=== PATIENT | male | born 1965 | race Caucasian/White ===

== ENCOUNTER 2022-11-17 15:28 | Inpatient (IN) | payer OTHER, SELFPAY ==
[~2022-11-17 15:28] MED LIST: Iopamidol-370 76% 500 ML 1 ML ONE
[2022-11-17 16:05] LABS: #Eosinphils 0.3 thou/uL (0.0-0.7); #Lymphocytes 1.7 thou/uL (1.20-3.40); #Monocytes 0.5 thou/uL (0.11-0.59); #Neutrophils 6.1 thou/uL (1.40-6.50); %Basophils 0.3 % (0.0-1.0); %Eosinophils 2.9 % (0.0-10.0); %Lymphocytes 19.6 % (21.0-51.0); %Monocytes 6.4 % (0.0-10.0); %Neutrophils 70.8 % (42.0-75.0); Hemoglobin 16.7 g/dL (14.0-18.0); Mean Corpuscular HGB CONC 35.7 g/dL (32.0-36.0); Mean Corpuscular Hemoglobin 30.8 pg (27.0-31.0); Mean Corpuscular Volume 86.3 fl (78.0-98.0); Platelet Count 230 10x3/uL (130-400); RBC Distribution Width 13.1 % (11.5-14.5); Red Blood Cell (RBC) Count 5.43 mill/uL (4.70-6.10); White Blood Cell (WBC) Count 8.5 10x3/uL (4.8-10.8)
[2022-11-17 16:20] LABS: INR-International Normal Ratio 1.1; PTT 30.1 sec (22.9-36.1); Prothrombin Time 14.4 sec (12.0-14.7)
[2022-11-17 16:29] LABS: ALT (SGPT) 34 U/L (8-55); AST (SGOT) 30 U/L (5-34); Albumin 4.2 g/dL (3.5-5.0); Alkaline Phosphatase 99 U/L (40-110); Anion Gap 20 mmol/L (10-20); BUN (Urea Nitrogen) 19 mg/dL (8.4-25.7); Bilirubin, Total 0.5 mg/dL (0.2-1.2); CK (CPK) 124 U/L (30-200); Calc. Creatinine Clearance 0 mL/min (70-130); Calcium 9.1 mg/dL (7.8-10.44); Carbon Dioxide 19 mmol/L (22-29); Chloride 104 mmol/L (98-107); Estimated GFR 56; Globulin 3.3 g/dL (2.4-3.5); Glucose 258 mg/dL (70-105); Lipase 81 U/L (8-78); Potassium 3.6 mmol/L (3.5-5.1); Protein, Total 7.5 g/dL (6.0-8.3); Sodium 139 mmol/L (136-145)
[2022-11-17] MEDS ORDERED: Aspirin Chewable 81 MG TAB ONE (16:29)
[2022-11-17 16:47] LABS: Bacteria/HPF None Seen HPF (None Seen); Bilirubin Negative (Negative); Blood, Urine Negative (Negative); Clarity Clear (Clear); Glucose, Urine (Dipstick) 70 mg/dL (Negative); Ketone, Urine Negative (Negative); Leukocyte Negative Leu/uL (Negative); Nitrite Negative (Negative); Protein, Urine (Dipstick) 200 mg/dL (Neg-Trace); RBC/HPF 0-3 HPF (0-3); Specific Gravity, Urine 1.036 (1.002-1.036); Squamous Epithelial None Seen HPF (0-3); Urobilinogen Normal mg/dL (Less than 2); pH, Urine 5.5 (5.0-9.0)
[2022-11-17] MEDS ORDERED: Dextrose 5% in Water 1,000 ML IV PRN (17:48)
[2022-11-17] MEDS ORDERED: Dextrose 50% Abboject 50 ML SYRINGE SLOW IVP PRN (17:48)
[2022-11-17 19:34] LABS: Hemoglobin A1c 6.7 % (4.0-6.0)
[2022-11-17] MEDS: hydrALAZINE 20 MG/ML VIAL SLOW IVP PRN (20:57)
[2022-11-17] MEDS: Atorvastatin Calcium 40 MG TAB PO SCH (20:57)
[2022-11-17 21:06] LABS: Troponin I 0.038 ng/mL (< 0.028)
[2022-11-17 21:16] LABS: Troponin I 0.047 ng/mL (< 0.028)
[2022-11-17 23:52] VITALS: BMI 44.1
[2022-11-18] MEDS: hydrALAZINE 20 MG/ML VIAL SLOW IVP PRN (00:36)
[2022-11-18 01:50] LABS: Amphetamine Not Detected (NotDetected); Barbiturates Screen Not Detected (NotDetected); Benzodiazepine Screen Not Detected (NotDetected); Cocaine Metabolite Screen Not Detected (NotDetected); Methadone Not Detected (NotDetected); Methamphetamine Not Detected (NotDetected); Opiate Screen Detected (NotDetected); Oxycodone Screen Not Detected (NotDetected); Phencyclidine (PCP) Not Detected (NotDetected); THC/Cannabinoid Screen Not Detected (NotDetected); Tricyclic Screen Not Detected (NotDetected)
[2022-11-18] MEDS: Labetalol HCl 100 MG/20 ML VIAL SLOW IVP PRN ×6 (05:27→20:52)
[2022-11-18 06:01] LABS: #Basophils 0.1 thou/uL (0.0-0.2); #Eosinphils 0.1 thou/uL (0.0-0.7); #Lymphocytes 1.8 thou/uL (1.20-3.40); #Monocytes 0.8 thou/uL (0.11-0.59); #Neutrophils 7.9 thou/uL (1.40-6.50); %Basophils 0.5 % (0.0-1.0); %Eosinophils 1.4 % (0.0-10.0); %Lymphocytes 16.9 % (21.0-51.0); %Monocytes 7.4 % (0.0-10.0); %Neutrophils 73.8 % (42.0-75.0); Hemoglobin 16.2 g/dL (14.0-18.0); Mean Corpuscular HGB CONC 33.6 g/dL (32.0-36.0); Mean Corpuscular Volume 86.5 fl (78.0-98.0); Mean Platelet Volume 7.8 fL (7.4-10.4); Platelet Count 247 10x3/uL (130-400); RBC Distribution Width 13.2 % (11.5-14.5); Red Blood Cell (RBC) Count 5.57 mill/uL (4.70-6.10); White Blood Cell (WBC) Count 10.7 10x3/uL (4.8-10.8)
[2022-11-18 06:26] LABS: Anion Gap 14 mmol/L (10-20); BUN (Urea Nitrogen) 14 mg/dL (8.4-25.7); Calc. Creatinine Clearance 184 mL/min (70-130); Calcium 9.4 mg/dL (7.8-10.44); Carbon Dioxide 24 mmol/L (22-29); Cardiac Risk 5.7 (Less than 4.5); Chloride 105 mmol/L (98-107); Cholesterol 223 mg/dl (< 200 Desired); Estimated GFR 85; Glucose 186 mg/dL (70-105); HDL Cholesterol 39 mg/dL (>60 Neg Risk); LDL Cholesterol, Calculated 162 mg/dL; Potassium 3.3 mmol/L (3.5-5.1); Sodium 140 mmol/L (136-145); Triglycerides 112 mg/dL (Less than 150)
[2022-11-18] MEDS ORDERED: Electrolyte Replacement Protocol 1 EACH FS SCH (08:15)
[2022-11-18] MEDS: Aspirin 81 mg Enteric Coated Tablet PO SCH (08:53)
[2022-11-18 09:33] LABS: Magnesium 1.7 mg/dL (1.6-2.6)
[2022-11-18] MEDS ORDERED: Potassium Chloride 20 MEQ TAB PO SCH (09:45)
[2022-11-18] MEDS ORDERED: Magnesium 2 GM/50 ML(in water) 2 GM in Premix Bag 1 BAG IVPB SCH (10:00)
[2022-11-18] MEDS: HumaLOG 300 UNITS/3 ML VIAL SC PRN (11:29)
[2022-11-18] MEDS ORDERED: NIFEdipine XL 30 MG TAB PO SCH ×2 (12:00→17:45)
[2022-11-18] MEDS ORDERED: Polyethylene Glycol 3350 17 GM Packet PO PRN (19:33)
[2022-11-18] MEDS: Folic Acid 1 MG TAB PO SCH (20:52)
[2022-11-18] MEDS: Senokot S 8.6-50 MG TAB PO SCH (20:52)
[2022-11-18] MEDS: Multivit, Therapeutic 1 TAB PO SCH (20:52)
[2022-11-18] MEDS: Cyanocobalamin (Vitamin B-12) 1,000 MCG TAB PO SCH (20:52)
[2022-11-18] MEDS: Atorvastatin Calcium 40 MG TAB PO SCH (20:52)
[2022-11-19] MEDS: HumaLOG 300 UNITS/3 ML VIAL SC PRN ×2 (06:01→23:01)
[2022-11-19 06:48] LABS: Anion Gap 14 mmol/L (10-20); BUN (Urea Nitrogen) 15 mg/dL (8.4-25.7); Calc. Creatinine Clearance 189 mL/min (70-130); Calcium 9.1 mg/dL (7.8-10.44); Carbon Dioxide 24 mmol/L (22-29); Chloride 104 mmol/L (98-107); Estimated GFR 88; Glucose 145 mg/dL (70-105); Potassium 3.3 mmol/L (3.5-5.1); Sodium 139 mmol/L (136-145)
[2022-11-19] MEDS ORDERED: Potassium Chloride 20 MEQ TAB PO SCH (07:30)
[2022-11-19] MEDS ORDERED: Electrolyte Replacement Protocol FS PRN (07:30)
[2022-11-19] MEDS ORDERED: Carvedilol 6.25 MG TAB PO SCH ×3 (08:15→21:00)
[2022-11-19] MEDS ORDERED: NIFEdipine XL 30 MG TAB PO SCH ×2 (09:00→17:45)
[2022-11-19] MEDS: Senokot S 8.6-50 MG TAB PO SCH ×2 (09:51→20:51)
[2022-11-19] MEDS: Aspirin 81 mg Enteric Coated Tablet PO SCH (09:51)
[2022-11-19] MEDS: NIFEdipine XL 30 MG TAB PO SCH ×2 (09:51→20:51)
[2022-11-19] MEDS: Allopurinol 100 MG TAB PO SCH (09:51)
[2022-11-19] MEDS ORDERED: Labetalol HCl 100 MG/20 ML VIAL SLOW IVP PRN ×2 (15:16)
[2022-11-19] MEDS ORDERED: HumaLOG 300 UNITS/3 ML VIAL SC PRN (15:32)
[2022-11-19] MEDS ORDERED: Labetalol HCl 100 MG TAB PO SCH (17:45)
[2022-11-19] MEDS ORDERED: Spironolactone 100 MG TAB PO SCH (17:45)
[2022-11-19] MEDS ORDERED: Labetalol HCl 100 MG/20 ML VIAL SLOW IVP SCH (18:00)
[2022-11-19] MEDS: Cyanocobalamin (Vitamin B-12) 1,000 MCG TAB PO SCH (20:52)
[2022-11-19] MEDS: Atorvastatin Calcium 40 MG TAB PO SCH (20:52)
[2022-11-19] MEDS: Multivit, Therapeutic 1 TAB PO SCH (20:52)
[2022-11-19] MEDS: Folic Acid 1 MG TAB PO SCH (20:52)
[2022-11-20 06:37] LABS: Anion Gap 15 mmol/L (10-20); BUN (Urea Nitrogen) 17 mg/dL (8.4-25.7); Calc. Creatinine Clearance 178 mL/min (70-130); Calcium 9.4 mg/dL (7.8-10.44); Carbon Dioxide 22 mmol/L (22-29); Chloride 103 mmol/L (98-107); Estimated GFR 82; Glucose 153 mg/dL (70-105); Potassium 3.6 mmol/L (3.5-5.1); Sodium 136 mmol/L (136-145)
[2022-11-20] MEDS: HumaLOG 300 UNITS/3 ML VIAL SC PRN (07:10)
[2022-11-20] MEDS ORDERED: Magnesium 2 GM/50 ML(in water) 2 GM in Premix Bag 1 BAG IVPB SCH (08:00)
[2022-11-20] MEDS ORDERED: Labetalol HCl 100 MG TAB PO SCH (09:00)
[2022-11-20] MEDS ORDERED: Spironolactone 100 MG TAB PO SCH (09:00)
[2022-11-20 09:04] LABS: Creatinine, Urine 162.76 mg/dL (63-166)
[2022-11-20] MEDS: Empagliflozin 10 MG TAB PO SCH (09:11)
[2022-11-20] MEDS: Aspirin 81 mg Enteric Coated Tablet PO SCH (09:11)
[2022-11-20] MEDS: Allopurinol 100 MG TAB PO SCH (09:12)
[2022-11-20] MEDS: Amlodipine 5 MG TAB PO SCH ×2 (09:12→13:41)
[2022-11-20] MEDS: Labetalol HCl 100 MG TAB PO SCH ×3 (09:13→21:39)
[2022-11-20] MEDS: Senokot S 8.6-50 MG TAB PO SCH ×3 (09:13→23:03)
[2022-11-20] MEDS: metFORMIN 500 MG TAB PO SCH (17:23)
[2022-11-20] MEDS ORDERED: Amlodipine 5 MG TAB PO SCH (18:30)
[2022-11-20] MEDS: Multivit, Therapeutic 1 TAB PO SCH (21:40)
[2022-11-20] MEDS: Atorvastatin Calcium 40 MG TAB PO SCH (21:40)
[2022-11-20] MEDS: Folic Acid 1 MG TAB PO SCH (21:40)
[2022-11-20] MEDS: Cyanocobalamin (Vitamin B-12) 1,000 MCG TAB PO SCH (21:40)
[2022-11-20] MEDS: Spironolactone 100 MG TAB PO SCH (21:41)
[2022-11-21 06:02] LABS: Anion Gap 16 mmol/L (10-20); BUN (Urea Nitrogen) 16 mg/dL (8.4-25.7); Calc. Creatinine Clearance 173 mL/min (70-130); Carbon Dioxide 22 mmol/L (22-29); Chloride 103 mmol/L (98-107); Estimated GFR 80; Glucose 123 mg/dL (70-105); Potassium 3.5 mmol/L (3.5-5.1); Sodium 137 mmol/L (136-145)
[2022-11-21] MEDS ORDERED: Potassium Chloride 20 MEQ TAB PO SCH (08:00)
[2022-11-21] MEDS ORDERED: Amlodipine 10 MG TAB PO SCH (09:00)
[2022-11-21] MEDS ORDERED: NIFEdipine XL 60 MG TAB PO SCH (09:00)
[2022-11-21] MEDS: Senokot S 8.6-50 MG TAB PO SCH (09:04)
[2022-11-21] MEDS: Aspirin 81 mg Enteric Coated Tablet PO SCH (09:04)
[2022-11-21] MEDS: metFORMIN 500 MG TAB PO SCH (09:04)
[2022-11-21] MEDS: Empagliflozin 10 MG TAB PO SCH (09:05)
[2022-11-21] MEDS: Allopurinol 100 MG TAB PO SCH (09:05)
[2022-11-21] MEDS: Labetalol HCl 100 MG TAB PO SCH (09:05)
[2022-11-21] MEDS: Spironolactone 100 MG TAB PO SCH (09:05)
[2022-11-21 12:01] VITALS: BP 148/91; TEMP 97.3
== END 2022-11-21 14:20 | DRG 64 ==
LOC: ERS 15:28 → OBSVTOIN 17:33 → NEURO 17:33
PROVIDERS: ADMIT Internal Medicine; ATTEND Internal Medicine
DX: I63.512 Cerebral infarction due to unspecified occlusion or stenosis of left middle cerebral artery (principal); I21.A1 Myocardial infarction type 2; G81.91 Hemiplegia, unspecified affecting right dominant side; Z68.41 Body mass index [BMI] 40.0-44.9, adult; N17.9 Acute kidney failure, unspecified; R29.707 NIHSS score 7; Z20.822 Contact with and (suspected) exposure to COVID-19; R29.810 Facial weakness; E11.22 Type 2 diabetes mellitus with diabetic chronic kidney disease; E66.01 Morbid (severe) obesity due to excess calories; E78.5 Hyperlipidemia, unspecified; E87.6 Hypokalemia; E83.42 Hypomagnesemia; E26.09 Other primary hyperaldosteronism; M10.9 Gout, unspecified; G47.30 Sleep apnea, unspecified; N18.2 Chronic kidney disease, stage 2 (mild); I16.0 Hypertensive urgency; E11.65 Type 2 diabetes mellitus with hyperglycemia; I12.9 Hypertensive chronic kidney disease with stage 1 through stage 4 chronic kidney disease, or unspecified chronic kidney disease; I34.0 Nonrheumatic mitral (valve) insufficiency; I51.89 Other ill-defined heart diseases; Z88.0 Allergy status to penicillin; Z79.899 Other long term (current) drug therapy
CPT/HCPCS: 36415; 36416; 70450; 70496; 70498; 71045; 80048; 80053; 80061; 80306; 81003; 81015; 82088; 82550; 82570; 83036; 83690; 83735; 83880; 84156; 84244; 84443; 84484; 85025; 85610; 85730; 93005; 93306; J0360; J1650; J1815; J3475; Q9967; U0003; U0005